=== PATIENT | male | born 1995 | race Caucasian/White ===

== ENCOUNTER 2017-08-25 16:26 | Emergency (ER) | payer SELFPAY ==
[2015-01-05 12:48] VITALS: BMI 31.3
[~2017-08-25 16:26] MED LIST: CLEOCIN PO; KEFLEX500 MG; KEFLEX500 MG PO; MEDROL DOSE PACK4 MG PO; NORCO 7.5/325 T1 TA1 PO
== END 2017-08-25 18:16 | disposition home or self-care (01) ==
LOC: D.ER 16:26
DX: S01.81XA Laceration without foreign body of other part of head, initial encounter (principal); W26.9XXA Contact with unspecified sharp object(s), initial encounter; Y93.89 Activity, other specified; Y92.89 Other specified places as the place of occurrence of the external cause